=== PATIENT | female | born 1965 | race American Indian/Alaskan Native ===

== ENCOUNTER 2023-10-22 10:03 | Outpatient (CLI) | payer OTHER | END 2023-10-22 10:13 | disposition home or self-care (01) | LOC: RAD 10:03 | PROVIDERS: ATTEND Orthopaedic Surgery | DX: M25.561 Pain in right knee (principal) ==

== ENCOUNTER 2025-05-12 07:06 | Outpatient (CLI) | payer OTHER ==
[2025-05-12 08:08] LABS: BASO % 0.4 % (0.1-1.2); EOS # 0.26 (0.04-0.54); EOS % 5.5 % (0.7-7.0); LYMPH # 2.45 (1.18-3.74); LYMPH % 52.0 % (19.3-53.1); MEAN PLATELET VOLUME 12.40 fl (9.4-12.4); MONO # 0.39 (0.24-0.82); MONO % 8.3 % (4.7-12.5); NEUT # 1.58 (1.56-6.13); NEUT % 33.6 % (34.0-71.1); RED CELL DISTRIBUTION WIDTH 11.9 % (11.6-14.4)
[2025-05-12 08:46] LABS: INR 1.05
[2025-05-12 08:59] LABS: % SATURACION 38.5 % (20-50); ALT/SGPT 85.0 U/L (12-78); AST/SGOT 43.0 U/L (15-37); BILIRUBIN TOTAL 0.87 mg/dL (0.3-1.2); BUN CREA RATIO 26.0 (7.0-25.0); CREATININE SERUM 0.86 mg/dL (0.70-1.30); FE 130.0 ug/dl (65-175); GFR 91.66; GLOBULINA 2.9 G/DL (2.4-3.5); GLUCOSE FASTING 106.0 mg/dL (65-100); LDH 171.0 U/L (87-241); OSMOLALITY SERUM 291.0 MOSM/KG (275-295)
[2025-05-12 12:06] LABS: FOLIC ACID 17.82 ng/ml (4.78-20)
[2025-05-13 07:10] LABS: hav igm Negative (Negative); hep b c Negative (Negative); hep b s ag Negative (Negative)
[2025-05-13 09:08] LABS: CA 19-9 19 U/mL (0-35)
== END 2025-05-12 07:16 | disposition home or self-care (01) ==
LOC: LAB 07:06
PROVIDERS: ATTEND Internal Medicine Hematology & Oncology
DX: R79.9 Abnormal finding of blood chemistry, unspecified (principal); D50.8 Other iron deficiency anemias; I10 Essential (primary) hypertension; R74.02 Elevation of levels of lactic acid dehydrogenase [LDH]; K76.89 Other specified diseases of liver; D51.3 Other dietary vitamin B12 deficiency anemia; D52.9 Folate deficiency anemia, unspecified; B20 Human immunodeficiency virus [HIV] disease; B17.9 Acute viral hepatitis, unspecified; Z11.59 Encounter for screening for other viral diseases; C25.9 Malignant neoplasm of pancreas, unspecified; R97.8 Other abnormal tumor markers; R97.0 Elevated carcinoembryonic antigen [CEA]; R77.2 Abnormality of alphafetoprotein; D68.8 Other specified coagulation defects; E56.1 Deficiency of vitamin K; D69.6 Thrombocytopenia, unspecified; D68.32 Hemorrhagic disorder due to extrinsic circulating anticoagulants

== ENCOUNTER 2025-05-12 08:08 | Outpatient (CLI) | payer OTHER | END 2025-05-12 08:12 | disposition home or self-care (01) | LOC: SONOGRAMA 08:08 | PROVIDERS: ATTEND Internal Medicine Hematology & Oncology | DX: D69.6 Thrombocytopenia, unspecified (principal); I10 Essential (primary) hypertension; D68.32 Hemorrhagic disorder due to extrinsic circulating anticoagulants ==